=== PATIENT | female | born 1970 | race Caucasian/White ===

== ENCOUNTER 2020-08-01 12:30 | Outpatient (CLI) | payer OTHER, SELFPAY ==
[2020-08-01 13:05] LABS: Hematocrit 42.2 % (37.0-47.0); Hemoglobin 13.3 g/dL (12.0-15.0); Mean Corpuscular HGB Conc 31.5 g/dl (32-36); Mean Corpuscular Hemoglobin 28.9 pg (26-34); Mean Corpuscular Volume 91.5 fl (80-100); Platelet Count Result 284 k/mm3 (150-375); Red Blood Count 4.61 M/mm3 (4.2-5.4); Red Cell Distribution Width 14.6 % (11.5-14.5); White Blood Count 9.8 K/mm3 (4.5-10.0)
[2020-08-01 13:18] LABS: Alanine Aminotransferase 22 U/L (4-35); Albumin Level 4.1 g/dL (3.5-5.1); Alkaline Phosphatase 68 U/L (38-126); Anion Gap 7 mmol/L (8-16); Aspartate Amino Transferase 23 U/L (14-36); Bilirubin,Total 0.4 mg/dL (0.2-1.3); Blood Urea Nitrogen 17 mg/dL (7-17); Calcium 9.4 mg/dL (8.4-10.2); Carbon Dioxide 33 mmol/L (22-30); Chloride 99 mmol/L (98-107); Cholesterol 141 mg/dL (0-200); Estimated Glomerular Filt Rate 59; Glucose 100 mg/dL (65-105); HDL Direct 28 mg/dL; Potassium 3.8 mmol/L (3.4-5.0); Sodium 139 mmol/L (137-145); Triglycerides 143 mg/dL (<150)
[2020-08-01 13:22] LABS: Hemoglobin A1C 5.9 % (<5.7)
[2020-08-01 13:29] LABS: LDL Cholesterol Direct 83 mg/dL
[2020-08-01 14:04] LABS: Creatinine Urine 241.4 mg/dL
[2020-08-01 14:07] LABS: MALB Creatinine Ratio 30.9 mg/g (0-30); Microalbumin Urine Random 74.6 mg/L (0-16.7)
== END 2020-08-01 12:31 | disposition home or self-care (01) ==
PROVIDERS: PCP Internal Medicine; Visit Provider Internal Medicine
DX: E11.9 Type 2 diabetes mellitus without complications (principal); I10 Essential (primary) hypertension
CPT/HCPCS: 36415; 80053; 80061; 82043; 83036; 84443; 85027

== ENCOUNTER 2024-01-22 23:45 | Inpatient (IN) | payer OTHER, SELFPAY ==
--- NOTE | ~2024-01-22 | CT_ITS ---
CT Facial Bones Clinical Indication: Left periorbital swelling and erythema Technique: Following intravenous administration of 75 cc of Omnipaque 350 contrast material, axial sc ans were obtained through the facial bones followed by coronal and sagittal reconstructions. Dose red uction technique was used on this scan by utilizing automated exposure control and iterative reconstr uction technique. The dose-length product (DLP) was 697.26 mGy-cm. Findings: No fractures are identified. The visualized paranasal sinuses are clear. There is left periorbital soft tissue swelling. There is a 2.2 x 1.1 x 1.3 cm peripherally enhancing fluid collection at the preseptal region at the medial aspect of the right orbit, in the region of th e nasolacrimal sac (axial image 61). Intraorbital soft tissues are unremarkable. Impression: Findings compatible with left periorbital cellulitis with associated 2.2 x 1.1 x 1.3 cm abscess/dacry ocystitis in the region of the left nasolacrimal sac at the medial aspect of left orbit. Intraoral soft tissues appear intact. No definite evidence for orbital cellulitis. Reviewed, dictated and finalized at location . Impression: Findings compatible with left periorbital cellulitis with associated 2.2 x 1.1 x 1.3 cm abscess/dacryocystitis in the region of the left nasolacrimal sac at t he medial aspect of left orbit. Intraoral soft tissues appear intact. No definite evidence for orbital cellulit is.
[2024-01-22 23:49] VITALS: BP 174/93; PULSE 86; RESP 17; TEMP 36.9; O2SAT 96
[2024-01-23] VITALS (9 sets, daily range): BP systolic 148–165; BP diastolic 67–105; PULSE 71–84; RESP 12–17; TEMP 36.4–36.9; O2SAT 95–96
--- NOTE | 2024-01-23 00:39 | ED.EYEPROB ---
HPI - Eye Problem General Chief complaint: Eye Problems <Jesus Cortez PA-C - Last Filed: 01/23/24 18:25> Stated complaint: eye complaint <Jesus Cortez PA-C - Last Filed: 01/23/24 18:25> Time Seen by Provider: 01/23/24 00:28 <Jesus Cortez PA-C - Last Filed: 01/23/24 18:25> Source: patient <SESAR Bradley Last Filed: 01/23/24 18:25> Mode of arrival: ambulatory <SSEAR Bradley Last Filed: 01/23/24 18:25> Limitations: no limitations <Jesus Cortez PA-C - Last Filed: 01/23/24 18:25> History of Present Illness HPI Narrative: This is a 54-year-old female who presents to the ED with chief complaint of left eye pain, redness and swelling. She has been dealing with this problem intermittently for the past 4 months but in the last couple of days the swelling is much increased. Describes the pain as more external and the skin rather than deep in the eye. Reports that her php mysql developer got her started on cephalexin and she has been on an oral course for the past 2 days. States that she has been on multiple rounds of oral and topical antibiotics for this since August. States usually the eye is just itchy but today is a little bit more painful with the swelling. Reports visual acuity decreased due to swelling vision is intact otherwise. Denies diplopia. Denies pain with EOMs. Denies fevers, chills, nausea, vomiting, headache, ear pain. States that her eye doctor and her regular doctor are really not sure what is going on with her eye. <Jesus Cortez PA-C - Last Filed: 01/23/24 18:25> Related Data Home medications: Home Medications Medication Instructions Recorded Confirmed budesonide-formoterol HFA 160 2 puff inhalation BID PRN 01/23/24 01/23/24 mcg-4.5 mcg/actuation aerosol Shortness Of Breath inhaler (Symbicort) esomeprazole magnesium 20 mg 20 mg PO HS 01/23/24 01/23/24 capsule,delayed release (Nexium) gabapentin 300 mg capsule 300 mg PO HS 01/23/24 01/23/24 ibuprofen 800 mg tablet 800 mg PO TID 01/23/24 01/23/24 metformin 1,000 mg tablet 1,000 mg PO DAILY 01/23/24 01/23/24 metoprolol succinate 25 mg 25 mg PO HS 01/23/24 01/23/24 tablet,extended release 24 hr pravastatin 20 mg tablet 20 mg PO DAILY 01/23/24 01/23/24 triamterene 37.5 1 tablet PO HS 01/23/24 01/23/24 mg-hydrochlorothiazide 25 mg tablet <Jesus Cortez PA-C - Last Filed: 01/23/24 18:25> Allergies/adverse reactions: Allergies Allergy/AdvReac Type Severity Reaction Status Date / Time sulfamethoxazole Allergy Unknown Verified 01/22/24 23:58 [From Bactrim] trimethoprim [From Bactrim] Allergy Unknown Verified 01/22/24 23:58 <SESAR Bradley Last Filed: 01/23/24 18:25> Review of Systems Review of Systems: All systems as dictated in HPI <Jesus Cortez PA-C - Last Filed: 01/23/24 18:25> PMFSH Social History Social History: Social History Smoking status: Never smoker Alcohol intake: never Substance use: never Substance use type: does not use Do You Feel Safe in your Home?: Yes Lack of Transportation: No Lack of Food: Never True Current Housing: I Have Housing Concerned About Future Housing: No Difficulty Paying Gas/Electric Bills: No Difficulty Paying for Meds: No Currently Unemployed: YES Education: High School Diploma/GED Difficulty w/ Childcare or Family Care: No Spiritual care concerns: No <SESAR Bradley Last Filed: 01/23/24 18:25> Exam Narrative: GENERAL: Well-appearing, well-nourished, and in no acute distress. HEAD: Normocephalic, atraumatic. EYES: PERRLA. EOMI and without pain. Right eye: Benign Left eye: Significant periorbital swelling and erythema, most concentrated inferiorly and medially. There is a 1 cm area that appears to be fluctuant medially. No active drainage. The area is tender. ENT: Nares clear, no rhinorrhea or epistaxis. Mucous membranes moist. Oropharynx without tonsillar
[2024-01-23 01:41] LABS: Basophils Absolute Auto 0.1 K/mm3 (0.0-0.1); Basophils Percent Auto 0.4 % (0.2-1.2); Eosinophils Absolute Auto 0.4 K/mm3 (0-0.3); Eosinophils Percent Auto 2.9 % (0-4.4); Hematocrit 46.9 % (37.0-47.0); Hemoglobin 14.8 g/dL (12.0-15.0); Immature Granulocyte Absolute 0.04 K/mm3 (0.00-0.031); Immature Granulocyte Percent A 0.3 % (0-0.5); Lymphocytes Absolute Auto 1.19 K/mm3 (0.9-3.2); Lymphocytes Percent Auto 9.7 % (18.3-44.2); Mean Corpuscular HGB Conc 31.6 g/dl (32-36); Mean Corpuscular Hemoglobin 29.3 pg (26-34); Mean Corpuscular Volume 92.9 fl (80-100); Monocytes Absolute Auto 0.9 K/mm3 (0.1-0.6); Monocytes Percent Auto 7.5 % (2.6-8.5); Neutrophils Absolute Auto 9.7 K/mm3 (1.3-6.7); Neutrophils Percent Auto 79.2 % (45.5-73.1); Platelet Count Result 249 k/mm3 (150-375); Red Blood Count 5.05 M/mm3 (4.2-5.4); Red Cell Distribution Width 14.3 % (11.5-14.5); White Blood Count 12.2 K/mm3 (4.5-10.0)
[2024-01-23 02:04] LABS: Albumin Level 4.6 g/dL (3.5-5.1); CRP 4.1 mg/dL (<1.0); Carbon Dioxide 34 mmol/L (22-30); Estimated CRCL calculation 94 ml/min; Estimated Glomerular Filt Rate > 60
[2024-01-23 02:18] LABS: Alanine Aminotransferase 17 U/L (6-35); Alkaline Phosphatase 75 U/L (38-126); Anion Gap 6 mmol/L (4-12); Aspartate Amino Transferase 27 U/L (14-36); Bilirubin,Total 0.4 mg/dL (0.2-1.3); Blood Urea Nitrogen 15 mg/dL (7-17); Calcium 9.2 mg/dL (8.4-10.2); Chloride 103 mmol/L (98-107); Glucose 126 mg/dL (65-110); Potassium 3.5 mmol/L (3.4-5.0); Sodium 143 mmol/L (137-145)
[2024-01-23] MEDS: CEFEPIME 2 GM/NS 50 ML 2 GM/50 ML BAG IVPB ×2 (02:39→13:40)
[2024-01-23] MEDS: KETOROLAC 15 MG/ML VIAL (*BKC) IV PUSH (02:39)
[2024-01-23 02:49] LABS: Estimated CRCL calculation 85 ml/min; Estimated Glomerular Filt Rate 58
[2024-01-23] MEDS: VANCOMYCIN 1,500 MG/NS 500 ML 1,500 MG/500 ML BAG 250 MG IVPB ×2 (03:44→14:30)
--- NOTE | 2024-01-23 04:34 | PM.IMHP ---
H&P: HPI History of Present Illness Date/Time: 01/23/24 04:34 Chief Complaint: Left orbital cellulitis Narrative: This is a 53-year-old female with past medical history significant for morbid obesity, type diabetes mellitus, hypertension, chronic kidney disease. Patient presents to the emergency room due to left orbital cellulitis, swelling, tenderness. Patient has been outpatient antibiotic treatment going on and off since August. Patient denies any fevers, rigors, chills, nausea, vomiting, body aches and pains. While in the emergency room patient had a rupture of the abscess. Emergency room doctor discussed case with ophthalmologic is at tertiary facility it was decided the patient needs to come in for IV antibiotics sings abscess drained by itself no need to transfer out. Patient has been admitted for IV antibiotics. A face CT is pending official reading at the time of this dictation CT Facial Bones Clinical Indication:? Left periorbital swelling and erythema Technique: Following intravenous administration of 75 cc of Omnipaque 350 contrast material, axial scans were obtained through the facial bones followed by coronal and sagittal reconstructions. Dose reduction technique was used on this scan by utilizing automated exposure control and iterative reconstruction technique. The dose-length product (DLP) was 697.26 mGy-cm. Findings: No fractures are identified. The visualized paranasal sinuses are clear. There is left periorbital soft tissue swelling. There is a 2.2 x 1.1 x 1.3 cm peripherally enhancing fluid collection at the preseptal region at the medial aspect of the right orbit, in the region of the nasolacrimal sac (axial image 61). Intraorbital soft tissues are unremarkable. Impression: Findings compatible with left periorbital cellulitis with associated 2.2 x 1.1 x 1.3 cm abscess/dacryocystitis in the region of the left nasolacrimal sac at the medial aspect of left orbit. Intraoral soft tissues appear intact. No definite evidence for orbital cellulitis. Review of Systems Review of Systems: Left eye orbital cellulitis Constitutional: Constitutional: Denies chills and Denies fever(s) Eyes: Eyes: Reports other (Left orbital cellulitis) ENT: Denies dysphagia, Denies nasal congestion and Denies odynophagia Cardiovascular: Cardiovascular: Denies chest pain, Denies radiating jaw, neck or arm pain and Denies palpitations Respiratory: Respiratory: Denies cough and Denies dyspnea Gastrointestinal: Gastrointestinal: Denies abdominal pain, Denies nausea and Denies vomiting Genitourinary: Genitourinary: Denies dysuria Musculoskeletal: Musculoskeletal: Denies myalgias and Denies arthralgias Integumentary/Breasts: Skin/Breast: Reports swelling, Reports erythema and Reports skin swelling (Left orbital cellulitis) Neurologic: Denies focal weakness and Denies Sensory deficit (Neuro) Psychiatric: Psychiatric: Reports no additional psychiatric complaints and Reports as per HPI Endocrine: Endocrine: Denies cold intolerance, Denies heat intolerance, Denies polyphagia, Denies polydipsia, Denies polyuria and Denies palpitations Hematologic/Lymphatic: Hematologic/Lymphatic: Reports no additional hematologic/lymphatic complaints and Reports as per HPI Allergic/Immunologic: Allergic/Immunologic: Reports no additional allergic/immunologic complaints and Reports as per HPI PMF Social History Social History Smoking status: Never smoker Alcohol intake: never Substance use: never Substance use type: does not use Do You Feel Safe in your Home?: Yes Lack of Transportation: No Lack of Food: Never True Current Housing: I Have Housing Concerned About Future Housing: No Difficulty Paying Gas/Electric Bills: No Difficulty Paying for Meds: No Currently Unemployed: YES Education: High School Diploma/GED Difficulty w/ Childcare or Family Care: No Spiritual care concerns: No Meds Home Me
--- NOTE | 2024-01-23 08:17 | PM.IMPN ---
Progress Note: A&P Assessment and Plan (1) Periorbital cellulitis of left eye: Code(s): L03.213 - Periorbital cellulitis Status: Acute Assessment and Plan: Per ER note, discussion was had with Dr. Rodriguez ([facility]) about possible transfer. At this time patients symptoms are improving, no need for transfer. Continues to have erythema and edema to the left periorbital region with serosanguineous discharge from the nasolacrimal area. Mild tenderness to palpation. - Face CT 01/22: Findings compatible with left periorbital cellulitis with associated 2.2 x 1.1 x 1.3 cm abscess/dacryocystitis in the region of the left nasolacrimal sac at the medial aspect of left orbit.Intraoral soft tissues appear intact. No definite evidence for orbital cellulitis. - Antibiotics: Vancomycin and cefepime started 01/22. - Wound culture ordered - MRSA negative (2) T2DM (type 2 diabetes mellitus): Code(s): E11.9 - Type 2 diabetes mellitus without complications Status: Acute Assessment and Plan: - hypoglycemia protocol - POC blood glucose ACHS - home medication - metformin - correct regimen ordered - low dose TIDWM - A1C ordered (3) Hypertension: Code(s): I10 - Essential (primary) hypertension Status: Acute Assessment and Plan: Chronic, stable on home medications. - Metoprolol 25 mg daily - triamterene-HCTZ daily - Monitor (4) Morbid obesity with BMI of 40.0-44.9, adult: Code(s): E66.01 - Morbid (severe) obesity due to excess calories; Z68.41 - Body mass index [BMI] 40.0-44.9, adult Status: Acute Assessment and Plan: BMI 45.6. Time Spent With Patient Time with patient: 25 - 35 minutes Subjective Date/time seen: 01/23/24 08:17 Interval history: 53 year old female with past medical history of diabetes, hypertension and morbid obesity reports to the hospital for left eye pain, redness and swelling. Patient is pleasant lying comfortably in bed. She states that she is feeling much better since her abscess popped last night. She states that while in the ED she felt a sudden relief in pressure and had noted discharge. Since that time she has felt significant pain relief throughout her face. She is no longer having pain to her eyebrow, nose, and left upper lip. She continues to deny any vision changes. She has no pain with EOM. She denies headaches, nausea/vomiting. Review of Systems Review of Systems: All systems reviewed & are unremarkable except as noted in HPI and below Exam Narrative: AF HR 71 RR 14 SpO2 95 BP 148/67 General: well nourished, well-developed female in no acute respiratory distress who is nontoxic appearing, lying semi recumbent in bed. HEENT: Pupils equal round reactive to light. Extraocular movement intact without pain. Sclera clear and anicteric. Erythema and edema to the left periorbital region with serosanguineous discharge from the nasolacrimal area. Mild tenderness to palpation. No facial asymmetry. Chest: Lungs are clear to auscultation bilaterally. No wheezes or crackles. CV: Heart was regular rate and rhythm. S1-S2. No murmurs, gallops, or rubs. Abd: Abdomen was soft. Nontender. Nondistended. Positive bowel sounds. No organomegaly or masses. Ext: No clubbing, cyanosis, or edema. 2+ DP pulses bilaterally. Neuro: Patient is alert and oriented x4. Cranial nerves 2-12 are intact. Speech is clear. Psych: Normal mood and affect. Patient is pleasant and cooperative. Skin: Warm and dry. No rashes noted. Objective Data Vital Signs Vital Signs: Vital Signs - 24 hr 01/22/24 23:49 01/23/24 02:05 01/23/24 04:10 Temperature 98.4 F Pulse Rate 86 81 84 Respiratory Rate 17 17 16 Blood Pressure 174/93 H 157/99 H 158/97 H Pulse Oximetry 96 96 96 Oxygen Delivery Room Air 01/23/24 06:02 01/23/24 06:00 01/23/24 07:42 Temperature 97.5 F L Pulse Rate 82 Respiratory Rate 16 Blood Pressure 165/105 H Pulse Oximetry 96 96 96 Oxyge
[2024-01-23] MEDS: PRAVASTATIN SODIUM 20 MG TABLET PO (09:27)
[2024-01-23 16:43] LABS: Glucose Point of Care 113 mg/dl (65-105)
[2024-01-23 20:04] LABS: Glucose Point of Care 173 mg/dl (65-105)
[2024-01-23] MEDS: PANTOPRAZOLE 40 MG TABLET PO (20:25)
[2024-01-23] MEDS: TRIAMTERENE 37.5 MG/HCTZ 25 MG (MAXZIDE) TABLET 1 TAB PO (20:25)
[2024-01-23] MEDS: METOPROLOL SUCCINATE EXT REL 25 MG TABCR PO (20:25)
[2024-01-23] MEDS: GABAPENTIN 300 MG CAPSULE PO (20:25)
[2024-01-24] MEDS: CEFEPIME 2 GM/NS 50 ML 2 GM/50 ML BAG IVPB ×2 (03:04→13:33)
[2024-01-24] MEDS: SODIUM CHLORIDE 0.9% IV 500 ML 30 ML (03:04)
[2024-01-24] MEDS: VANCOMYCIN 1,500 MG/NS 500 ML 1,500 MG/500 ML BAG 250 MG IVPB (03:10)
[2024-01-24 05:38] VITALS: BP 153/75; PULSE 67; RESP 12; TEMP 36.4; O2SAT 94
[2024-01-24 05:53] LABS: Basophils Absolute Auto 0.1 K/mm3 (0.0-0.1); Basophils Percent Auto 0.6 % (0.2-1.2); Eosinophils Absolute Auto 0.4 K/mm3 (0-0.3); Hematocrit 39.2 % (37.0-47.0); Hemoglobin 12.4 g/dL (12.0-15.0); Immature Granulocyte Absolute 0.03 K/mm3 (0.00-0.031); Immature Granulocyte Percent A 0.4 % (0-0.5); Lymphocytes Absolute Auto 1.55 K/mm3 (0.9-3.2); Lymphocytes Percent Auto 18.5 % (18.3-44.2); Mean Corpuscular HGB Conc 31.6 g/dl (32-36); Mean Corpuscular Hemoglobin 29.2 pg (26-34); Mean Corpuscular Volume 92.5 fl (80-100); Mean Platelet Volume 10.2 fl (7.4-10.4); Monocytes Absolute Auto 0.7 K/mm3 (0.1-0.6); Monocytes Percent Auto 8.1 % (2.6-8.5); Neutrophils Absolute Auto 5.6 K/mm3 (1.3-6.7); Neutrophils Percent Auto 67.4 % (45.5-73.1); Platelet Count Result 238 k/mm3 (150-375); Red Blood Count 4.24 M/mm3 (4.2-5.4); Red Cell Distribution Width 14.2 % (11.5-14.5); White Blood Count 8.4 K/mm3 (4.5-10.0)
[2024-01-24 06:04] LABS: Alanine Aminotransferase 15 U/L (6-35); Albumin Level 3.6 g/dL (3.5-5.1); Alkaline Phosphatase 53 U/L (38-126); Anion Gap 5 mmol/L (4-12); Aspartate Amino Transferase 17 U/L (14-36); Bilirubin,Total 0.4 mg/dL (0.2-1.3); Blood Urea Nitrogen 15 mg/dL (7-17); Calcium 8.6 mg/dL (8.4-10.2); Carbon Dioxide 32 mmol/L (22-30); Chloride 103 mmol/L (98-107); Estimated CRCL calculation 94 ml/min; Estimated Glomerular Filt Rate > 60; Glucose 135 mg/dL (65-110); Potassium 3.4 mmol/L (3.4-5.0); Sodium 140 mmol/L (137-145)
[2024-01-24 07:31] LABS: Glucose Point of Care 139 mg/dl (65-105)
[2024-01-24 10:26] LABS: Hemoglobin A1C 6.1 % (<5.7)
[2024-01-24 11:24] LABS: Glucose Point of Care 151 mg/dl (65-105)
--- NOTE | 2024-01-24 12:52 | PM.IMPN ---
Progress Note: A&P Assessment and Plan (1) Periorbital cellulitis of left eye: Code(s): L03.213 - Periorbital cellulitis Status: Acute Assessment and Plan: Per ER note, discussion was had with Dr. Rodriguez ([facility]) about possible transfer. At this time patients symptoms are improving, no need for transfer. Continues to have erythema and edema to the left periorbital region with serosanguineous discharge from the nasolacrimal area. Mild tenderness to palpation. - Face CT 01/22: Findings compatible with left periorbital cellulitis with associated 2.2 x 1.1 x 1.3 cm abscess/dacryocystitis in the region of the left nasolacrimal sac at the medial aspect of left orbit.Intraoral soft tissues appear intact. No definite evidence for orbital cellulitis. - Antibiotics: Vancomycin and cefepime started 01/22. - Wound culture ordered, however prior to its collection the wound stopped draining. If wound has drainage will collect a sample. - MRSA negative (2) T2DM (type 2 diabetes mellitus): Code(s): E11.9 - Type 2 diabetes mellitus without complications Status: Acute Assessment and Plan: - hypoglycemia protocol - POC blood glucose ACHS - home medication - metformin - correct regimen ordered - low dose TIDWM - A1C 6.1 (3) Hypertension: Code(s): I10 - Essential (primary) hypertension Status: Acute Assessment and Plan: Chronic, stable on home medications. - Metoprolol 25 mg daily - triamterene-HCTZ daily - Monitor (4) Morbid obesity with BMI of 40.0-44.9, adult: Code(s): E66.01 - Morbid (severe) obesity due to excess calories; Z68.41 - Body mass index [BMI] 40.0-44.9, adult Status: Acute Assessment and Plan: BMI 45.6. Time Spent With Patient Time with patient: 25 - 35 minutes Subjective Date/time seen: 01/24/24 12:52 Interval history: 53 year old female with past medical history of diabetes, hypertension and morbid obesity reports to the hospital for left eye pain, redness and swelling. Patient is pleasant lying comfortably in bed. She denies any vision changes, headaches, facial pain and the swelling continues to improve. The wound has stopped draining at this time and a scab has formed near the nasolacrimal region. Unable to collect a wound culture, however if the wound has discharge at any point will collect a sample. Patient remains on IV antibiotics at this time will likely transition to PO in the am. She denies chest pain, shortness of breath, nausea/vomiting, and change in bowel/bladder. Review of Systems Review of Systems: All systems reviewed & are unremarkable except as noted in HPI and below Exam Narrative: AF HR 59 RR 12 SpO2 97 BP 133/67 General: female in no acute respiratory distress who is nontoxic appearing, lying semi recumbent in bed. HEENT: Pupils equal round reactive to light. Extraocular movement intact without pain. Sclera clear and anicteric. Erythema and edema to the left periorbital region without discharge or tenderness to palpation. No facial asymmetry. Chest: Lungs are clear to auscultation bilaterally. No wheezes or crackles. CV: Heart was regular rate and rhythm. S1-S2. No murmurs, gallops, or rubs. Abd: Abdomen was soft. Nontender. Nondistended. Positive bowel sounds. No organomegaly or masses. Ext: No clubbing, cyanosis, or edema. 2+ DP pulses bilaterally. Neuro: Patient is alert and oriented x4. Cranial nerves 2-12 are intact. Speech is clear. Psych: Normal mood and affect. Patient is pleasant and cooperative. Skin: Warm and dry. No rashes noted. Objective Data Vital Signs Vital Signs: Vital Signs - 24 hr 01/23/24 14:00 01/23/24 21:21 01/23/24 20:00 Temperature 97.6 F 98.5 F Pulse Rate 71 78 Respiratory Rate 14 12 Blood Pressure 148/67 H 152/78 H Pulse Oximetry 95 95 Oxygen Delivery Room Air 01/23/24 20:36 01/24/24 05:38 01/24/24 08:00 Temperature 97.5 F L Pulse Rate 67 Respiratory Rate 12 Blo
[2024-01-24 14:00] VITALS: BP 133/67; PULSE 59; RESP 12; TEMP 36.3; O2SAT 97
[2024-01-24 14:39] LABS: Vancomycin Trough 14.8 ug/mL (10.0-20.0)
[2024-01-24] MEDS: VANCOMYCIN 1,250 MG/NS 250 ML 1,250 MG/250 ML BAG 166.67 MG IVPB (15:57)
[2024-01-24 16:31] LABS: Glucose Point of Care 112 mg/dl (65-105)
[2024-01-24 20:29] LABS: Glucose Point of Care 153 mg/dl (65-105)
[2024-01-24 20:50] VITALS: BP 153/96; PULSE 69; RESP 20; TEMP 36; O2SAT 96
[2024-01-24] MEDS: PANTOPRAZOLE 40 MG TABLET PO (21:03)
[2024-01-24] MEDS: GABAPENTIN 300 MG CAPSULE PO (21:03)
[2024-01-24] MEDS: METOPROLOL SUCCINATE EXT REL 25 MG TABCR PO (21:03)
[2024-01-24] MEDS: TRIAMTERENE 37.5 MG/HCTZ 25 MG (MAXZIDE) TABLET 1 TAB PO (21:03)
[2024-01-24] MEDS: PRAVASTATIN SODIUM 20 MG TABLET PO (21:04)
[2024-01-25] MEDS: CEFEPIME 2 GM/NS 50 ML 2 GM/50 ML BAG IVPB (01:36)
[2024-01-25] MEDS: VANCOMYCIN 1,250 MG/NS 250 ML 1,250 MG/250 ML BAG 166.67 MG IVPB (04:19)
[2024-01-25 05:44] VITALS: BP 145/63; PULSE 63; RESP 20; TEMP 36.7; O2SAT 98
[2024-01-25 05:56] LABS: Basophils Absolute Auto 0.1 K/mm3 (0.0-0.1); Basophils Percent Auto 0.6 % (0.2-1.2); Eosinophils Absolute Auto 0.5 K/mm3 (0-0.3); Eosinophils Percent Auto 5.1 % (0-4.4); Hemoglobin 12.3 g/dL (12.0-15.0); Immature Granulocyte Absolute 0.04 K/mm3 (0.00-0.031); Immature Granulocyte Percent A 0.4 % (0-0.5); Lymphocytes Absolute Auto 1.64 K/mm3 (0.9-3.2); Lymphocytes Percent Auto 18.2 % (18.3-44.2); Mean Corpuscular HGB Conc 30.8 g/dl (32-36); Mean Corpuscular Hemoglobin 28.9 pg (26-34); Mean Corpuscular Volume 93.9 fl (80-100); Mean Platelet Volume 10.3 fl (7.4-10.4); Monocytes Absolute Auto 0.6 K/mm3 (0.1-0.6); Monocytes Percent Auto 6.6 % (2.6-8.5); Neutrophils Absolute Auto 6.2 K/mm3 (1.3-6.7); Neutrophils Percent Auto 69.1 % (45.5-73.1); Platelet Count Result 238 k/mm3 (150-375); Red Blood Count 4.26 M/mm3 (4.2-5.4); Red Cell Distribution Width 14.3 % (11.5-14.5)
[2024-01-25 06:09] LABS: Alanine Aminotransferase 16 U/L (6-35); Albumin Level 3.5 g/dL (3.5-5.1); Alkaline Phosphatase 56 U/L (38-126); Anion Gap 5 mmol/L (4-12); Aspartate Amino Transferase 21 U/L (14-36); Bilirubin,Total 0.3 mg/dL (0.2-1.3); Blood Urea Nitrogen 16 mg/dL (7-17); Calcium 8.8 mg/dL (8.4-10.2); Carbon Dioxide 32 mmol/L (22-30); Chloride 102 mmol/L (98-107); Estimated CRCL calculation 94 ml/min; Estimated Glomerular Filt Rate > 60; Glucose 94 mg/dL (65-110); Potassium 3.6 mmol/L (3.4-5.0); Sodium 139 mmol/L (137-145)
[2024-01-25 07:40] LABS: Glucose Point of Care 88 mg/dl (65-105)
[2024-01-25 11:12] LABS: Glucose Point of Care 141 mg/dl (65-105)
[2024-01-25 13:47] VITALS: BP 118/76; PULSE 60; RESP 18; TEMP 36.5; O2SAT 98
--- NOTE | 2024-01-25 14:16 | PM.DS ---
DS: Admitting Diagnosis Discharge Date 01/25/2024 Admitting Diagnosis Periorbital cellulitis of left eye T2DM Hypertension Morbid obesity DS: Discharge Diagnosis Discharge Diagnosis (1) Periorbital cellulitis of left eye: Code(s): L03.213 - Periorbital cellulitis Status: Acute (2) T2DM (type 2 diabetes mellitus): Code(s): E11.9 - Type 2 diabetes mellitus without complications Status: Acute (3) Hypertension: Code(s): I10 - Essential (primary) hypertension Status: Acute (4) Morbid obesity with BMI of 40.0-44.9, adult: Code(s): E66.01 - Morbid (severe) obesity due to excess calories; Z68.41 - Body mass index [BMI] 40.0-44.9, adult Status: Acute DS: Summary Hospital Course Reason for hospitalization: Periorbital cellulitis of left eye T2DM Hypertension Morbid obesity Hospital Course: 53 year old female with past medical history of diabetes, hypertension and morbid obesity reports to the hospital for left eye pain, redness and swelling. Patient notes that she has been dealing with left eye swelling for several months. She has been seen by her PCP and opthamalogist and placed on multiple antibiotics with minimal help. Per ER note, discussion was had with Dr. Rodriguez ([facility]) about possible transfer, however there was not a final read on CT and they denied. CT final read revealed left periorbital cellulitis with associated 2.2 x 1.1 x 1.3 cm abscess/dacryocystitis in the region of the left nasolacrimal sac at the medial aspect of left orbit.Intraoral soft tissues appear intact. No definite evidence for orbital cellulitis. The patients notes that the abscess drained in the ED and she was started on IV antibiotics. Patients symptoms continued to improve with medical management, so there was no need for transfer. A wound culture was ordered, but unfortunately not collected prior to the wound drainage stopping. On final exam patients swelling had significantly improved with minimal redness noted. She was started on broad antibiotics as this has been an ongoing issues and there was no culture to refer to. Patient discharged home in a stable condition. She is to complete her antibiotics as prescribed and follow up with her PCP in 1-2 weeks in regards to recent admission. Status at Discharge Functional status at discharge: independent ambulation Time Spent with Patient Time attestation: Total time spent providing and/or coordinating discharge services: Time spent: Greater than 30 minutes Exam Narrative: AF HR 60 RR 18 SpO2 98 BP 118/76 General: female in no acute respiratory distress who is nontoxic appearing, lying semi recumbent in bed. HEENT: Pupils equal round reactive to light. Extraocular movement intact without pain. Sclera clear and anicteric. Mild redness and minimal swelling to the left periorbital region without discharge or tenderness to palpation. Scab near the nasolacrimal duct.No facial asymmetry. Chest: Lungs are clear to auscultation bilaterally. No wheezes or crackles. CV: Heart was regular rate and rhythm. S1-S2. No murmurs, gallops, or rubs. Abd: Abdomen was soft. Nontender. Nondistended. Positive bowel sounds. No organomegaly or masses. Ext: No clubbing, cyanosis, or edema. 2+ DP pulses bilaterally. Neuro: Patient is alert and oriented x4. Cranial nerves 2-12 are intact. Speech is clear. Psych: Normal mood and affect. Patient is pleasant and cooperative. Skin: Warm and dry. No rashes noted. DS: Data Data Completed and Pending Completed studies during hospitalization: Face CT Labs on day of discharge: Labs from last 24 hours 01/25/24 01/25/24 01/25/24 11:09 07:35 05:29 WBC 9.0 RBC 4.26 Hgb 12.3 Hct 40.0 MCV 93.9 MCH 28.9 MCHC 30.8 L RDW 14.3 Plt Count 238 MPV 10.3 Immature Gran % (Auto) 0.4 Neut % (Auto) 69.1 Lymph % (Auto) 18.2 L [place] % (Auto) 6.6 Eos % (Auto) 5.1 H Baso % (Auto) 0.6 Lymph # (Au
== END 2024-01-25 13:40 | disposition home or self-care (01) | DRG 603 ==
LOC: ANHED 01-23 05:00 → ANH3MEDSUR 01-23 05:23
PROVIDERS: Physician Assistant; Student in an Organized Health Care Education/Training Program; Admitting Provider Internal Medicine; Emergency Provider Emergency Medicine; PCP Internal Medicine; Visit Provider Internal Medicine
DX: L03.213 Periorbital cellulitis (principal); Z68.41 Body mass index [BMI] 40.0-44.9, adult; E66.01 Morbid (severe) obesity due to excess calories; I12.9 Hypertensive chronic kidney disease with stage 1 through stage 4 chronic kidney disease, or unspecified chronic kidney disease; E11.22 Type 2 diabetes mellitus with diabetic chronic kidney disease; N18.9 Chronic kidney disease, unspecified; Z79.84 Long term (current) use of oral hypoglycemic drugs
CPT/HCPCS: 36415; 70487; 80053; 80202; 82948; 83036; 85025; 86140; 96365; 96366; 96367; 96375; 99285; A9270; G0378; J0692; J1885; J3370; J7040; Q9967

== ENCOUNTER 2024-02-19 16:33 | Emergency (ER) | payer OTHER, SELFPAY ==
[2024-02-19 16:43] VITALS: BP 160/76; PULSE 71; RESP 20; TEMP 36.6; O2SAT 96
--- NOTE | 2024-02-19 17:03 | ED.SKABFB ---
HPI - Skin/Abscess/Foreign Bdy General Chief complaint: Skin/Abscess/Foreign Body Stated complaint: Rash Time Seen by Provider: 02/19/24 16:54 Source: patient and RN notes reviewed Mode of arrival: ambulatory Limitations: no limitations History of Present Illness HPI narrative: Patient presents today complaining of pruritic rash to the bilateral arms and legs with small patch to the abdomen x2 days. Symptoms began after she was working and some long grass in her backyard clearing debris. She has tried some Children's Benadryl without relief. Related Data Home Medications Medication Instructions Recorded Confirmed budesonide-formoterol HFA 160 2 puff inhalation BID PRN 01/23/24 01/23/24 mcg-4.5 mcg/actuation aerosol Shortness Of Breath inhaler (Symbicort) esomeprazole magnesium 20 mg 20 mg PO HS 01/23/24 01/23/24 capsule,delayed release (Nexium) gabapentin 300 mg capsule 300 mg PO HS 01/23/24 01/23/24 ibuprofen 800 mg tablet 800 mg PO TID 01/23/24 01/23/24 metformin 1,000 mg tablet 1,000 mg PO DAILY 01/23/24 01/23/24 metoprolol succinate 25 mg 25 mg PO HS 01/23/24 01/23/24 tablet,extended release 24 hr pravastatin 20 mg tablet 20 mg PO DAILY 01/23/24 01/23/24 triamterene 37.5 1 tablet PO HS 01/23/24 01/23/24 mg-hydrochlorothiazide 25 mg tablet Allergies Allergy/AdvReac Type Severity Reaction Status Date / Time sulfamethoxazole Allergy Unknown Verified 02/19/24 16:49 [From Bactrim] trimethoprim [From Bactrim] Allergy Unknown Verified 02/19/24 16:49 Review of Systems Review of Systems: CONSTITUTIONAL: Denies body aches, fever, chills, or sweats. EYES: Denies visual changes, redness, or discharge. ENT: Denies rhinorrhea, congestion, sore throat, or otalgia. CARDIOVASCULAR: Denies chest pain, palpitations, or edema. RESPIRATORY: Denies cough or dyspnea. GASTROINTESTINAL: Denies abdominal pain, nausea, vomiting, or diarrhea. GENITOURINARY: Denies dysuria or hematuria. SKIN: + pruritic rash MUSCULOSKELETAL: Denies back pain, joint pain, or myalgia. NEUROLOGIC: Denies headache, numbness, tingling, or weakness. PSYCH: Denies depression or anxiety. [facility] Social History Social History Smoking status: Never smoker Alcohol intake: never Substance use: never Substance use type: does not use Do You Feel Safe in your Home?: Yes Lack of Transportation: No Lack of Food: Never True Current Housing: I Have Housing Concerned About Future Housing: No Difficulty Paying Gas/Electric Bills: No Difficulty Paying for Meds: No Currently Unemployed: YES Education: High School Diploma/GED Difficulty w/ Childcare or Family Care: No Spiritual care concerns: No Comments At time of signature, I have reviewed and agree with nursing past medical, surgical, social and family history unless otherwise noted. Please see nursing chart for further information. There is no relevant family history pertinent to the presenting complaint Exam Narrative: GENERAL: Well-appearing, well-nourished, and in no acute distress. HEAD: Normocephalic, atraumatic. EYES: EOMI. No redness or drainage. Conjunctivae normal. ENT: Mucous membranes pink and moist. NECK: Normal AROM. CHEST: No respiratory distress. EXTREMITIES: Normal range of motion. No edema. SKIN: Warm, dry. Capillary refill normal. Normal skin turgor. Scattered small patches erythematous maculopapular rash to the bilateral forearms, lower legs, and abdomen. No signs of infection. No drainage. NEURO: No focal deficits. Alert and oriented x3. Gait steady. PSYCH: Normal affect. No signs of depression or anxiety. Course Course Level of Care: Express Care Visit Vital Signs Vital signs: Vital Signs Temperature 97.9 F 02/19/24 16:43 Pulse Rate 71 02/19/24 16:43 Respiratory Rate 20 02/19/24 16:43 Blood Pressure 160/76 H 02/19/24 16:43 Pulse Oximetry 96
== END 2024-02-19 17:28 | disposition home or self-care (01) ==
PROVIDERS: Emergency Provider Nurse Practitioner; PCP Internal Medicine
DX: L25.9 Unspecified contact dermatitis, unspecified cause (principal)
CPT/HCPCS: 99213; G0463